=== PATIENT | male | born 1930 | race Caucasian/White ===

== ENCOUNTER 2019-01-01 02:19 | Emergency (ER) | payer MEDICARE, BC ==
[~2019-01-01] VITALS: Ht 182.9 cm; Wt 111.1 kg
[2019-01-01] MEDS ORDERED: TORADOL IM STA (02:27)
--- NOTE | 2019-01-01 02:31 | ER.PDOC ---
General Chief Complaint: Requesting Medical Care Stated Complaint: PAIN TO RT SIDE Time seen by MD: 02:28 Source: patient Exam Limitations: no limitations History of Present Illness Initial Comments Right rib pain S/P fall yesterday. He did not hit his head. Where: home Context: fall Location of pain/injury: chest Quality/Severity: moderate Remembers: injury, coming to hospital Allergies: Coded Allergies: Penicillins (Verified Allergy, Severe, Anaphylaxis Shock, 01/01/19) Review of Systems Constitutional: no symptoms reported Mouth: no symptoms reported Throat: no symptoms reported Respiratory: no symptoms reported Cardiovascular: see HPI Gastrointestinal: no symptoms reported All Other Systems: Reviewed and Negative Physical Exam General Appearance: No Apparent Distress, WD/WN Head: No Evidence of Injury Ears, Nose, Throat: Hearing Grossly Normal, No Evidence of ENT Injury, No Dental Injury Respiratory: normal breath sounds, no respiratory distress, tenderness (right lateral chestwall) Cardiovascular/Chest: Normal Peripheral Pulses, Regular Rate, Rhythm, No Edema , No Gallop, No JVD, No Murmur Gastrointestinal: Normal Bowel Sounds, No Organomegaly, No Pulsatile Mass, Non Tender, Soft Back: Normal Inspection, No CVA Tenderness, No Vertebral Tenderness Extremities: No Evidence of Injury, Normal Range of Motion, Non-Tender, No Pedal Edema Neurologic/Psychiatric: refueling rampman II-XII NML as Tested, No Motor/Sensory Deficits, Alert, Normal Mood/Affect, Oriented x 3 Jean Coma Score Best Eye Response: (4) Open Spontaneously Best Verbal Response: (5) Oriented Best Motor Response: (6) Obeys Commands Results/Orders Results/Orders Administered Medications Medications (Trade) Dose Ordered Sig/Luci Route PRN Reason Start Time Stop Time Status Last Admin Dose Admin Ketorolac Tromethamine (Toradol) 30 mg STAT STAT IM 01/01/19 02:27 01/01/19 02:29 DC 01/01/19 02:37 Progress Progress Remote bilateral rib fractures noted. No definite acute rib fracture is identified. 2. Senescent changes. No pneumothorax or other acute cardiopulmonary abnormality suspected. Departure Time of Disposition: 03:34 Disposition: 01 HOME, SELF-CARE Impression: Primary Impression: Contusion, chest wall Qualified Codes: S20.211A - Contusion of right front wall of thorax, initial encounter Condition: Stable Additional Instructions: Tramadol F/U with your PCP next week Duration or Time Spent with Pa: 45 mins LILLY,SALAZAR E MD Jan 01, 2019 02:31
[2019-01-01] MEDS ORDERED: TORADOL ONE (02:34)
[2019-01-01 03:19] VITALS: BP 153/83
--- NOTE | 2019-01-01 03:28 | DIREP ---
PROCEDURE:XRAY RIBS W/PA CHEST 3VWS-RT COMPARISON:None. INDICATIONS:Pain S/P fall FINDINGS: RIBS:Remote bilateral rib fractures noted. No acute displaced right rib fracture is identified. OTHER:Interstitial thickening throughout the bilateral hemithoraces may reflect senescent changes in a patient of this age group. No suspicious airspace consolidation, pleural effusion or pneumothorax is identified. CONCLUSION: 1. Remote bilateral rib fractures noted. No definite acute rib fracture is identified. 2. Senescent changes. No pneumothorax or other acute cardiopulmonary abnormality suspected. Dictated by: David Barajas M.D. On 01/01/2019 at 03:25 AM
--- NOTE | 2019-01-01 03:50 | NUR ---
DEPART PATIENT TAKEN TO PRIVATE VEHICLE VIA W/C AND ASSISTED INTO CAR. FAMILY MEMBER WILL TRANSPORT HOME.
[2019-01-01 03:56] VITALS: BP 153/83
== END 2019-01-01 03:50 | disposition home or self-care (01) ==
LOC: ER 02:19
DX: S20.211A Contusion of right front wall of thorax, initial encounter (principal); Z88.0 Allergy status to penicillin; W18.2XXA Fall in (into) shower or empty bathtub, initial encounter; Y93.89 Activity, other specified; Y92.098 Other place in other non-institutional residence as the place of occurrence of the external cause; Y99.8 Other external cause status
CPT/HCPCS: 71101; 96372; 99284; J1885